=== PATIENT | male | born 1945 | race Caucasian/White ===

== ENCOUNTER 2017-03-25 20:11 | Observation (INO) | payer OTHER ==
--- NOTE | 2017-03-25 20:14 | EDPHY ---
H & P Time Seen by Provider: 03/25/17 20:32 HPI/ROS: CHIEF COMPLAINT: Syncope HISTORY OF PRESENT ILLNESS: This patient is a 71-year-old male who presents to the Emergency Department via EMS after an episode of syncope while at the [employer]. Per his , he appeared to feel unwell while sitting in the stands at the [employer] before losing consciousness. He reportedly remained limp and unresponsive for approximately 8-10 minutes. He was breathing during that time. There were no limb movements. At time of arrival, he reports feeling fatigued and nauseated with diffuse paresthesias. He denies chest pain or headache. He denies weakness. He has not recently been ill. No history of recent trauma. Medical history includes hypertension; he has been taking his medication as prescribed. No history of cardiac disease. He did take two hits of marijuana at the [employer]. He is not a regular marijuana smoker. His states that he had a similar, although less dramatic, episode several years ago. At that time he was hospitalized for days and underwent an extensive workup with no apparent diagnosis. REVIEW OF SYSTEMS: A ten point review of systems was performed and is negative with the exception of the items mentioned in the HPI. Source: Patient, Family - Medical/Surgical History PMH: Hypertension - Social History Additional Social History: - and son at bedside. - Works at [employer]. Also a track coach. - No tobacco use. - No illicit drug use. - Physical Exam Exam: General Appearance: Alert, tachypneic, appears fatigued. Vital signs reviewed. Hypotensive at 97/61. Head: Normocephalic atraumatic. Eyes: Pupils equal and round, no conjunctival injection, no discharge. Anicteric. ENT, Mouth: Mucous membranes are dry, no oropharyngeal erythema or edema. Neck: No lymphadenopathy, supple. Trachea midline. Respiratory: Lungs are clear to auscultation; no wheezes, rales, or rhonchi. Cardiovascular: Regular rate and rhythm; no murmur, rub, or gallop. Gastrointestinal: Abdomen is soft and nontender, no masses or organomegaly, bowel sounds normal. Skin: Warm and dry, no rashes on exposed skin, normal color. Back: Nontender to palpation over the thoracolumbar spine. No CVAT. Extremities: No lower extremity edema, no calf tenderness or swelling. Neurological: Alert and oriented x3. Moving all four extremities easily and equally. Cranial nerves II through XII are examined and are intact (visual acuity not tested). Strength is 5 over 5 bilaterally with testing of all major motor groups. Sensation is intact to light touch over all 4 extremities. Deep tendon reflexes are 2+ in the biceps and knees bilaterally. Normal heel to moise bilaterally. Psychiatric: Normal affect. No agitation. Constitutional: Initial Vital Signs Temperature (C) 36.4 C 03/25/17 20:25 Heart Rate 98 03/25/17 20:25 Respiratory Rate 14 03/25/17 20:25 Blood Pressure 97/61 L 03/25/17 20:25 O2 Sat (%) 97 03/25/17 20:25 O2 Delivery Mode Room Air Allergies/Adverse Reactions: No Known Allergies Allergy (Unverified 03/25/17 20:24) Home Medications: Medication Instructions Recorded Acetaminophen/ASA/Caffeine 2 each PO DAILY PRN 03/25/17 [Excedrin Tablet (*)] Lisinopril [Zestril 10 mg (*)] 10 mg PO DAILY 03/25/17 Temazepam [Restoril 15 MG (*)] 15 mg PO HS 03/25/17 Zolpidem Tartrate [Ambien 10 mg] 10 mg PO HS 03/25/17 Medical Decision Making - Diagnostics EKG Interpretation: The 12 lead EKG was interpreted by myself: Sinus rhythm, rate 90; borderline prolonged QT interval; no ischemic changes. See hard copy and/or "tracemaster" electronic copy for interpretation. Imaging Results: Head CT reviewed by me. Also discussed with radiologist. No acute findings. ED Course/Re-evaluation: This 71-year-old male with no significant medical history other than hypertension presents following an apparent syncopal episode while seated at a concert this evening. He is hypotensive at 97/61 at time of arrival. At time of exam, he is tachypneic and complains of associated paresthesias bilaterally which I believe are secondary to hyperventilation. He has a flat affect and appears fatigued. No focal neurological findings on exam. Speech is somewhat deliberate and slow, but clear and appropriate. Will proceed with labs, EKG, and CT of the head. IV established. 1L IV NS administered. Labs obtained. CO2 decreased at 15. Troponin is negative. 212: CT of the head is normal per Dr. Muñiz, radiology. 2140: On reevaluation, the patient complains of persistent nausea and bilateral extremity paresthesias. He appears uncomfortable and states that he feels sick to his stomach. He remains tachypneic with respiratory rate of 30. He is alert and fully oriented. I discussed lab, EKG, and imaging results with the patient and his family. Patient now tells me that he has a remote history of similar episodes for which he was worked up and never given a definitive diagnosis. reports last significant episode was in the early . She repeats that alexx's episode was different from what she has previously witnessed, in both duration and severity. 4mg IV Zofran administered for persistent nausea. 2149: Consultation with Dr. Quintana, hospitalist, who accepts admission. He has remained relatively hypotensive while in the emergency department. No cardiac arrhythmia is appreciated on the monitor. No laboratory findings that would explain alexx's event. It is not clear to me whether this was a syncopal event, a seizure (metabolic acidosis suggests seizure), or reaction to the marijuana that he smoked. I do feel that admission is appropriate for continued cardiac monitoring, perhaps more imaging, IV hydration, and consultation as needed. Differential Diagnosis: I considered a differential diagnosis of Syncope including but not limited to vasovagal syncope, arrhythmia, dehydration, and blood loss. I also considered a differential diagnosis of Seizure including but not limited to electrolyte abnormality, alcohol withdrawal, medication noncompliance, head injury, and breakthrough seizure. - Data Points Laboratory Results: Laboratory Results 03/25/17 20:25 03/25/17 20:25 Medications Given: Discontinued Medications Sodium Chloride (Ns) 1,000 mls @ 0 mls/hr IV ONCE ONE; Wide Open PRN Reason: Protocol Stop: 03/25/17 20:38 Last Admin: 03/25/17 21:00 Dose: 1,000 mls Sodium Chloride (Ns) 1,000 mls @ 0 mls/hr IV ONCE ONE PRN Reason: Wide Open Stop: 03/25/17 21:56 Last Admin: 03/25/17 22:00 Dose: 1,000 mls Lorazepam (Ativan Injection) 1 mg IVP EDNOW ONE Stop: 03/25/17 22:01 Last Admin: 03/25/17 22:00 Dose: 1 mg Departure - Departure Disposition: [facility] Acute Clinical Impression: Syncope Qualifiers: Syncope type: unspecified Qualified Code(s): R55 - Syncope and collapse Condition: Fair Report Scribed for: Sirena Mcclellan Report Scribed by: Nithya Garcia Date of Report: 03/25/17 Time of Report: 20:29 Physician Review and Approval Statement: 03/25/17 20:14 Portions of this note were transcribed by the mobile paramedical examiner. I, Dr. Sirena Mcclellan, personally performed the history, physical exam, and medical decision- making; and confirmed the accuracy of the information in the transcribed note.
--- NOTE | 2017-03-25 20:22 | CPEKG ---
Heart Rate: 90 RR Interval: 667 P-R Interval: 168 QRSD Interval: 92 QT Interval: 392 QTC Interval: 480 P [place]: 69 QRS [place]: 5 T Wave [place]: 50 EKG Severity - BORDERLINE ECG - EKG Impression: SINUS RHYTHM EKG Impression: BORDERLINE PROLONGED QT INTERVAL Electronically Signed By: Sirena Mcclellan 26-Mar-2017 01:40:19
[2017-03-25] MEDS ORDERED: NS 1,000 ML IV ONE ×2 (20:37→21:55)
[2017-03-25 20:44] LABS: % IMMATURE GRANULYOCYTES 1.4 % (0.0-1.1); ABSOLUTE IMMATURE GRANULOCYTES 0.14 10^3/uL (0.00-0.10); ADD DIFF? NO; ADD MORPH? NO; ADD SCAN? NO; ATYPICAL LYMPHOCYTE FLAG 0 (0-99); FRAGMENT RBC FLAG 0 (0-99); HEMATOCRIT 40.5 % (40.0-51.0); HEMOGLOBIN 14.3 g/dL (13.7-17.5); LEFT SHIFT FLG 10 (0-99); LIPEMIA HEMOLYSIS FLAG 90 (0-99); MEAN CELL HEMOGLOBIN 30.8 pg (27.9-34.1); MEAN CELL HEMOGLOBIN CONCENTR. 35.3 g/dL (32.4-36.7); MEAN CELL VOLUME 87.1 fL (81.5-99.8); PLATELET CLUMPS FLAG 10 (0-99); PLATELET COUNT 274 10^3/uL (150-400); RED BLOOD CELL COUNT 4.65 10^6/uL (4.40-6.38); RED CELL DISTRIBUTION WIDTH 13.2 % (11.5-15.2)
[2017-03-25 20:46] LABS: ANION GAP 15 mEq/L (8-16); CARBON DIOXIDE 15 mEq/l (22-31); CHLORIDE 106 mEq/L (97-110); CREATININE 1.2 mg/dL (0.7-1.3); GLOMERULAR FILTRATION RATE > 60; GLUCOSE 122 mg/dL (70-100); POTASSIUM 3.5 mEq/L (3.5-5.2); SODIUM 136 mEq/L (134-144)
[2017-03-25 20:57] LABS: TROPONIN I < 0.012 ng/mL (0-0.034)
[2017-03-25] MEDS ORDERED: LORazepam 2 MG/ML INJ ONE (21:47)
[2017-03-25] MEDS ORDERED: LORazepam 2 MG/ML INJ IVP ONE (22:00)
[2017-03-25] MEDS ORDERED: ONDANSETRON 4 MG/2 ML VIAL IVP PRN (23:37)
[2017-03-25] MEDS ORDERED: ACETAMINOPHEN 325 MG TAB PO PRN (23:37)
[2017-03-25] MEDS ORDERED: ONDANSETRON DISINTEGRATING 4 MG TAB PO PRN (23:37)
[2017-03-26] MEDS: NS 1,000 ML IV SCH ×2 (00:50→08:42)
--- NOTE | 2017-03-26 03:57 | PDGENHP ---
History and Physical - Chief Complaint syncope - History of Present Illness Patient is a 71 year old male with hypertension, osteoarthritis who presents to the ED after a syncopal event. patient was at the [employer] concert this evening with his , had been standing in the sunlight for about 1 hour when he informed his that he felt unwell. When she looked at him, she reported he appeared clammy and diaphoretic. She then helped him down into the seated position and he subsequently lost consciousness. She does not report any obvious jerking movements urinary incontinence or tongue biting, but she feels LOC lasted several minutes. Eventually he was brought to the medical tent present at the concert, where patient's BP was noted to be low. Patient does recall being evaluated by EMS and transported to the ED, but does not remember the events leading up to his syncopal event. He reported continued generalized fatigue and weakness, faint paresthesias in his distal extremities and nausea, but denies any obvious chest pain, palpitations, shortness of breath. Of note, prior to the concert, patient had spent the day outside with his grandchildren, did not adequately hydrate himself throughout the day. Then, prior to the concert, he smoked marijuana, which he is not a regular user of generally. He denies any recent fever, chills, headache, cough, vomiting, diarrhea, dysuria. He does report a prior history of a syncopal event in about 2004, for which he was admitted to [facility]. At that time there was concern for possible seizure activity, although, ultimately cause of the syncope was not determined. At baseline he has good cardiac function, exercises regularly. On arrival to the ED, patient was afebrile, but initially hypotensive. Labs revealed mild leukocytosis, anion gap, negative troponin. CT head was unremarkable for any acute pathology. EKG revealed normal sinus rhythm. He was given IV fluid hydration with improvement in his blood pressure and symptoms. History Information - Allergies/Home Medication List Allergies/Adverse Reactions: No Known Allergies Allergy (Unverified 03/25/17 20:24) Home Medications: Acetaminophen/ASA/Caffeine [Excedrin Tablet (*)] 2 each PO DAILY PRN 03/25/17 [ Last Taken 03/25/17 2 tabs] Lisinopril [Zestril 10 mg (*)] 10 mg PO DAILY 03/25/17 [Last Taken 03/25/17] Temazepam [Restoril 15 MG (*)] 15 mg PO HS 03/25/17 [Last Taken 03/24/17] Zolpidem Tartrate [Ambien 10 mg] 10 mg PO HS 03/25/17 [Last Taken 03/24/17] I have personally reviewed and updated: family history, medical history, social history, surgical history - Past Medical History Additional medical history: hypertension. h/o prostate cancer s/p radiation therapy. osteoarthritis - Surgical History Additional surgical history: L finger amputation. appendectomy - Family History Additional family history: CAD. CVA in Grandfather - Social History Smoking Status: Never smoked Alcohol Use: None Drug Use: None, Marijuana (tonight ) Additional social history: Patient lives with his , is active at baseline. Review of Systems ROS: 10pt was reviewed & negative except for what was stated in HPI & below Physical Exam Temp Pulse Resp BP Pulse Ox 36.4 C 67 18 140/89 H 98 03/26/17 00:39 03/26/17 00:39 03/26/17 00:39 03/26/17 00:39 03/26/17 00:39 O2 (L/minute) 2 Constitutional: no apparent distress, appears nourished, not in pain Eyes: PERRL, anicteric sclera, EOMI Ears, Nose, Mouth, Throat: moist mucous membranes, hearing normal, ears appear normal, no oral mucosal ulcers Cardiovascular: regular rate and rhythym, no murmur, rub, or gallop, pulses symmetric bilaterally, No JVD, No edema Peripheral Pulses: 2+: dorsalis-pedis (R), dorsalis-pedis (L) Respiratory: no respiratory distress, no rales or rhonchi, clear to auscultation Gastrointestinal: normoactive bowel sounds, soft, non-tender abdomen, no palpable masses, No guarding, No rebound, No distension Genitourinary: no bladder fullness, no bladder tenderness Skin: warm, normal color, no rashes or abrasions, no fluctuance, no induration, No mottled Musculoskeletal: full muscle strength, no muscle tenderness, normal joint ROM, no joint effusions Neurologic: AAOx3, sensation intact bilaterally, CN II-XII Intact, No weakness, No numbness, No pronator drift, No facial droop Psychiatric: interacting appropriately, not anxious, not encephalopathic, thought process linear Lab Data & Imaging Review 03/25/17 20:25 03/25/17 20:25 WBC 10.15 10^3/uL (3.80-9.50) H 03/25/17 20:25 RBC 4.65 10^6/uL (4.40-6.38) 03/25/17 20:25 Hgb 14.3 g/dL (13.7-17.5) 03/25/17 20:25 Hct 40.5 % (40.0-51.0) 03/25/17 20:25 MCV 87.1 fL (81.5-99.8) 03/25/17 20: MCH 30.8 pg (27.9-34.1) 03/25/17 20: MCHC 35.3 g/dL (32.4-36.7) 03/25/17 20:25 RDW 13.2 % (11.5-15.2) 03/25/17 20:25 Plt Count 274 10^3/uL (150-400) 03/25/17 20:25 MPV 10.0 fL (8.7-11.7) 03/25/17 20:25 Neut % (Auto) 57.0 % (39.3-74.2) 03/25/17 20:25 Lymph % (Auto) 29.0 % (15.0-45.0) 03/25/17 20:25 Snyder % (Auto) 10.2 % (4.5-13.0) 03/25/17 20:25 Eos % (Auto) 1.5 % (0.6-7.6) 03/25/17 20:25 Baso % (Auto) 0.9 % (0.3-1.7) 03/25/17:25 Nucleat RBC Rel Count 0.0 % (0.0-0.2) 03/25/17: Absolute Neuts (auto) 5.79 10^3/uL (1.70-6.50) 03/25/17 20:25 Absolute Lymphs (auto) 2.94 10^3/uL (1.00-3.00) 03/25/17 20:25 Absolute Monos (auto) 1.04 10^3/uL (0.30-0.80) H 03/25/17 20:25 Absolute Eos (auto) 0.15 10^3/uL (0.03-0.40) 03/25/17 20:25 Absolute Basos (auto) 0.09 10^3/uL (0.02-0.10) 03/25/17 20:25 Absolute Nucleated RBC 0.00 10^3/uL (0-0.01) 03/25/17 20:25 Immature Gran % 1.4 % (0.0-1.1) H 03/25/17 20:25 Immature Gran # 0.14 10^3/uL (0.00-0.10) H 03/25/17 20:25 Sodium 136 mEq/L (134-144) 03/25/17 20:25 Potassium 3.5 mEq/L (3.5-5.2) 03/25/17 20:25 Chloride 106 mEq/L (97-110) 03/25/17 20:25 Carbon Dioxide 15 mEq/l (22-31) L 03/25/17 20:25 Anion Gap 15 mEq/L (8-16) 03/25/17 20:25 BUN 18 mg/dL (7-23) 03/25/17 20:25 Creatinine 1.2 mg/dL (0.7-1.3) 03/25/17 20:25 Estimated GFR > 60 03/25/17 20:25 Glucose 122 mg/dL (70-100) H 03/25/17 20:25 Calcium 10.0 mg/dL (8.5-10.4) 03/25/17 20:25 Creatine Kinase 108 IU/L (0-224) 03/25/17 20:35 Troponin I < 0.012 ng/mL (0-0.034) 03/25/17 20:25 Visualized and Interpreted imaging results: Yes Interpretation: CT head: no acute abnormalities Visualized and Interpreted EKG results: Yes EKG Interpretation: Positive for: normal sinsus rhythm (no st/t wave changes) Assessment & Plan Assessment: Patient is a 71-year-old male with hypertension who presents to the ED after syncopal episode experienced at the [employer]. Initial ED evaluation reveals hypotension that has resolved with IV fluid hydration, nonischemic EKG, normal CT head. Plan: # syncope Suspect episode is likely related to hypovolemia/dehydration in setting of poor hydration during prolonged outdoor exposure, as well as new marijuana ingestion. However, must also consider neurogenic (TIA, seizure) vs cardiogenic (ACS, arrhythmia) etiology. CT head does not reveal any acute abnormalities and patient has no focal deficits on presenting exam. Initial ekg and troponin are also unremarkable. - trend troponins, monitor serial EKGs - check TTE - check carotid dopplers - obtain neurology consult for possible seizure history/prolonged nature of syncope - continue IV fluid hydration overnight # chronic hypertension BP low on presentation, has improved with IV hydration. Will monitor VS and resume home meds if appropriate. # dispo: admit to observation status for syncope evaluation #gen: cardiac diet DVT ppx: low risk Full code
[2017-03-26 05:48] LABS: % IMMATURE GRANULYOCYTES 0.8 % (0.0-1.1); ABSOLUTE IMMATURE GRANULOCYTES 0.08 10^3/uL (0.00-0.10); ADD DIFF? NO; ADD MORPH? NO; ADD SCAN? NO; ATYPICAL LYMPHOCYTE FLAG 0 (0-99); FRAGMENT RBC FLAG 0 (0-99); HEMATOCRIT 37.1 % (40.0-51.0); HEMOGLOBIN 12.8 g/dL (13.7-17.5); LEFT SHIFT FLG 10 (0-99); LIPEMIA HEMOLYSIS FLAG 90 (0-99); MEAN CELL HEMOGLOBIN 30.5 pg (27.9-34.1); MEAN CELL HEMOGLOBIN CONCENTR. 34.5 g/dL (32.4-36.7); MEAN CELL VOLUME 88.5 fL (81.5-99.8); MEAN PLATELET VOLUME 10.1 fL (8.7-11.7); PLATELET CLUMPS FLAG 10 (0-99); PLATELET COUNT 217 10^3/uL (150-400); RED BLOOD CELL COUNT 4.19 10^6/uL (4.40-6.38); RED CELL DISTRIBUTION WIDTH 13.3 % (11.5-15.2)
[2017-03-26 06:07] LABS: APTT 27.3 SEC (23.0-38.0); INR 1.15 (0.83-1.16); PROTIME(PATIENT) 14.6 SEC (12.0-15.0)
[2017-03-26 06:22] LABS: ANION GAP 8 mEq/L (8-16); CALCIUM 8.5 mg/dL (8.5-10.4); CARBON DIOXIDE 19 mEq/l (22-31); CHLORIDE 112 mEq/L (97-110); CREATININE 0.8 mg/dL (0.7-1.3); GLOMERULAR FILTRATION RATE > 60; GLUCOSE 96 mg/dL (70-100); POTASSIUM 4.1 mEq/L (3.5-5.2); SODIUM 139 mEq/L (134-144)
[2017-03-26 06:30] LABS: CREATINE KINASE-MB FRACTION 1.58 ng/mL (0-3.19); TROPONIN I 0.014 ng/mL (0-0.034)
[2017-03-26] MEDS ORDERED: LISINOPRIL 10 MG TAB PO SCH (09:00)
[2017-03-26] MEDS ORDERED: IOPAMIDOL (ISOVUE 370) 100 ML BTL IV ONE (09:47)
--- NOTE | 2017-03-26 10:27 | GCON ---
[f rep st] CONSULTATION NEUROLOGIC CONSULTATION. REFERRING PHYSICIAN: Ashlyn Hurst MD The patient is a 71-year-old gentleman who I am asked to see in neurologic consultation regarding ep isode of altered responsiveness and possible seizure. History is obtained from the patient as well as review of the medical records and discussions with his who has witnessed last night's event as well as others in the past. For probably 40 years he has had episodes of intermittent speech arr est that usually last 10 or 15 seconds and then resolve. He usually knows it is coming and it is no t associated with any convulsive activity. However, he says he would not typically be able to speak to somebody during the event when it occurs. It rarely has occurred when driving and he always fee ls as if he can control his car and get off the road. Yesterday he was going to the [facility] oncern and standing for the first song and then said she could tell something did not look righ t after he sat down, and started to become poorly responsive with eyes open but quickly started to d evelop rigidity in the body and twisting of his body. She said he was flexed toward her with his he ad and over the next several minutes she said it appeared that he was not breathing and some local edical people checked him and could not order picker/assembler a pulse. She says she thought he was dying. He the n started to have some repetitive muscle twitching and they eventually were able to get him out of t he crowd but he was still unresponsive in any significant way. He says he really remembers only vag uely any of what was happening. It took several hours for him to really start returning back to him self again. She said at some point rescue squad documented systolic blood pressure of around 60. I n reviewing the medical records here when he came to the hospital, his blood pressure was 97/61, and since then has been either around 117 or most recently 140 systolic. He had a few hits of marijuana yesterday and does not smoke regularly. He was not drinking any alco hol. No other drug exposures. He did not have any known cause for these events in the past and has had some more prominent events, although none is prominent as this, that have led to hospitalization here in 2004 and apparently 5 days of hospitalization without any clear-cut explanation. Many years ago (30 years) he believes he was tried on Dilantin but really did not tolerate that. It is clear that there was some concern ab out seizures in the past but he does not really pursue that any more. He currently is feeling better and is still somewhat slower in his interactions, although his s ays he is always a very slow and deliberate speaker. Clearly, what happened yesterday was nothing w elzah she had ever seen before and the most dramatic episode she had ever witnessed before. She cert ainly said it looked like seizure activity to her and not simply fainting. He has not had any recent illness but he has been under high stress with an alcoholic son who has be en missing for 10 days. He was feeling somewhat short of breath and also describing paresthesias in the extremities and some nausea. There is a history of hypertension, prostate cancer with radiatio n therapy for that, osteoarthritis. Family history of coronary disease and stroke but no family his tory of seizure. When he came to the hospital he was on Excedrin as needed, lisinopril, Restoril as needed at night and zolpidem as needed. He has never been a smoker. Marijuana use has been rare a lthough he did have a few hits yesterday. No alcohol. 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 The current vital signs are blood pressure 140/89, pulse of 67, respiration 18, temperature 36.4. I n general he is well developed, in no acute distress. Eyes are clear. Neck is supple with no bruit s on the right but I hear bruit on the left. Cardiac exam is regular rate and rhythm. No murmur. He is alert and fairly attentive although has decreased eye contact and has a flat affect and speaks slowly and quietly. He is oriented and able to communicate effectively and follow instructions. P upils 3 mm and reactive. Extraocular movements are intact. Normal facial sensation and strength. Hearing is preserved. Motor exam, normal muscle bulk and tone with 5/5 strength. Sensation is pres erved for temperature and light touch. Reflexes are 1+ and symmetric. I have reviewed the head CT which was normal. His carotid ultrasound shows severe plaquing bilatera lly with velocity estimated stenoses of less than 50% with the recommendation for further imaging fo r details about the degree of stenosis. Laboratory studies show white count of 9000, hematocrit of 37%, normal INR. Serum chemistry when he came in showed a bicarbonate level of 15, glucose of 122, bicarbonate is now 19, otherwise normal e lectrolytes. TSH and CK are normal. Normal troponin. 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 He then went through a prolonged period of postictal state or maybe even complex partial seizure activ ity. Although he has carotid stenosis, these probably do not account for this event specifically. This is far more prolonged and atypical to simply represent a syncopal event with syncopal seizure, I think. His laboratory studies, although nonspecific, showed metabolic acidosis as we would common ly see with seizure like this. His head CT is negative, but insensitive for mesial temporal lobe pa thology which would be the principal site we would investigate further. He needs MR angiogram to he lp look at the carotid stenoses at the same time we arrange for brain MRI with and without contrast to look for any seizure focus, particularly left hemisphere focus or mesial temporal lobe. He was i nformed that he is not to drive and is restricted from driving for 3 months until these episodes cea se. I believe he should be treated with anticonvulsant therapy, but he is refusing in the short ter m saying that he wants to think about it and is leery of medications in general and did not like the experience he had with Dilantin. I explained to him that I believe he really should take medicatio n, but it is certainly his call as to whether he wants to do that. His really wants him to luann e the medication as well, but we fully understand that it is his choice as to whether to take medica tion or not. If everything stabilizes today and we do not find anything unusual with our additional work up, the rest of the evaluations can be done as an outpatient and I am happy to follow him. Total unit time was 55 minutes with greater than 50% of the time counseling and coordination of care . /[id number]/MODL
[2017-03-26 11:06] LABS: COLOR YELLOW; LEUKOCYTE ESTERASE,URINE NEGATIVE (NEGATIVE); NITRITE,URINE NEGATIVE (NEGATIVE)
[2017-03-26] MEDS ORDERED: GADOBUTROL 10 ML VIAL IVP ONE (11:40)
[2017-03-26 13:46] VITALS: BP 145/89; PULSE 75; RESP 16; TEMP 98; O2SAT 95
--- NOTE | 2017-03-26 15:19 | PDDCSUM ---
Discharge Summary Discharge Summary: Dates of service 03/25-03/26/17 Discharge diagnosis # seizure # right ICA stenosis # htn Consultations: neurology Procedures performed: echo, brain mri, neck MRA, carotid US Hospital course by problem # seizure: patient presented after a LOC event at a concert initially concerning for syncope but on further discussion with patient and his , more c/w seizure--LOC for 10-15 minutes at which time he was noted by EMS and bystanders to have labored breathing and apnea as well as weak pulses--this was followed by many hours of post ictal state. 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 He was placed on dilantin once but had an allergic response, described as anaphylactic, and discontinued it. He has never seen a neurologist since other than in the hospital. After long discussion he agrees to start keppra and f/u with neurology. Seizure precautions including not driving stressed to him and his family, he is in agreement with this plan. MRI brain negative. # right ICA stenosis: by MRA appears to be 50-70% stenosed, discussed that this will need close f/u and consideration for CEA. Recommend he obtain surgical consultation with Dr. Lio Reaves as an OP and he agrees to this plan. Meds: keppra 500 bid, diazepam rectal prn prolonged seizure--new F/u with PCP, Dr. Steen of neurology and Dr. Reaves > 60 minutes spent in discharge of patient, more than half in face to face counseling of patient and his family regarding reasons for being on anti seizure medications and importance of follow up
--- NOTE | 2017-03-26 19:52 | ECHO ---
[id number] + + [id number] : : [place] [id number] : : [phone] + + Adult Echocardiographic Report + ------+ :Name: KATHY DIAZ RStudy Date: 03/26/2017 11:23 AM : : Hospital Admission Number: [id number] Locatio n: 212: :: 1945 Gender: Male Height: 67 in : :Age: 71 yrs Race: WH Weight: 150 lb : :Reason For Study: syncope : : BSA: 1.8 meters 2 : + ------+ MMode/2D Measurements \T\ Calculations IVSd: 0.46 cm LVIDd: 4.5 cm FS: 52.6 % Ao root diam: LVPWd: 0.87 cm LVIDs: 2.2 cm EDV(Teich): 3.1 cm 94.4 ml LA dimension: ESV(Teich): 3.2 cm 15.4 ml EF(Teich): 83.7 % LVLd ap4: 7.5 cm SV(MOD-sp4): EDV(MOD-sp4): 37.0 ml 55.0 ml LVLs ap4: 5.7 cm ESV(MOD-sp4): 18.0 ml EF(MOD-sp4): 67.3 % Normal Measurement Values: + + :LVIDd (3.5-5.7cm) IVSd (0.6-1.1cm) LVPWd (0.6-1.1cm) Aortic Root (2.0-3.7cm)Left Atrium (1.5-4.0cm): :LV Vol(d) (76-115ml) LV Vol(s) (29-48ml) Ejec Fraction (50-65%)PV Stoney (0.6- 1.2m/s) TV Stoney (0.4-1.0m/s) : :MV E Stoney (0.8-1.0m/s)MV A Stoney (0.3-1.0m/s)LVOT Stoney (0.7-1.2m/s) Asc Ao Stoney ( 0.9-1.8m/s) : + + Doppler Measurements \T\ Calculations MV E max stoney: 96.7 cm/sec Ao V2 max: 116.7 cm/sec TR max stoney: 274.2 cm/sec MV A max stoney: 71.6 cm/sec Ao max P.5 mmHg TR max P.1 mmHg MV E/A: 1.4 RAP systole: 5.0 mmHg RVSP(TR): 35.1 mmHg Left Ventricle The left ventricle is normal in size and function. There is normal left ventricular wall thickness. Left ventricular systolic function is normal. Ejection Fraction = 60-65%. No regional wall motion abnormalities noted. Right Ventricle The right ventricle is normal in size and function. Atria The left atrial size is normal. Right atrial size is normal. The interatrial septum is intact with no evidence for an atrial septal defect. Mitral Valve There is mild mitral annular calcification. There is no evidence of mitral valve prolapse. There is no mitral valve stenosis. There is mild mitral regurgitation. Tricuspid Valve Normal tricuspid valve. There is mild tricuspid regurgitation. Right ventricular systolic pressure is normal. Aortic Valve The aortic valve is trileaflet. The aortic valve opens well. There is no aortic stenosis. There is no aortic insufficiency. Pulmonic Valve The pulmonic valve is normal in structure and function. There is no pulmonic valvular regurgitation. Great Vessels The aortic root is normal size. Pericardium/Pleural There is no pericardial effusion. Conclusion A complete two-dimensional transthoracic echocardiogram was performed (2D, M-mode, Doppler and color flow Doppler). The left ventricle is normal in size and function. Left ventricular systolic function is normal. Ejection Fraction = 60-65%. There is mild mitral regurgitation. There is mild tricuspid regurgitation. Right ventricular systolic pressure is normal. Final Reading Physician: Yosi Gee MD electronically signed on 03/26/2017 07:51 PM Performed By: Linda Ley RDCS
== END 2017-03-26 16:01 | disposition home or self-care (01) ==
LOC: EDUNIT# → F2W 23:35
PROVIDERS: ADMIT Internal Medicine; ATTEND Internal Medicine
DX: R56.9 Unspecified convulsions (principal); I65.23 Occlusion and stenosis of bilateral carotid arteries; E86.0 Dehydration; I95.9 Hypotension, unspecified; I10 Essential (primary) hypertension; M19.90 Unspecified osteoarthritis, unspecified site
CPT/HCPCS: 70450; 70548; 70553; 93005; 93306; 93880; G0378; 96374; A9585; J2060; Q9967

== ENCOUNTER → 2017-05-10 | Outpatient (CLI) | payer OTHER ==
--- NOTE | 2017-05-12 09:34 | CPEEG ---
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 INDICATION: Evaluate for seizure and epileptiform activity. DESCRIPTION OF THE RECORD: This is a technically adequate study obtained following partial sleep de privation. Background consists of a 10 hertz posterior predominant symmetric alpha rhythm which att enuates on eye opening. Frontal central beta activity is present. There are no areas of focal slow ing and no epileptiform discharges. Photic stimulation is performed and produces symmetric driving responses at some frequencies. Hyperventilation produces mild, symmetric buildup. INTERPRETATION: This is a normal awake EEG recording. /[id number]/MODL
== END ==
LOC: FCPNEURO 08:51
PROVIDERS: ATTEND Psychiatry & Neurology Neurology
DX: G40.009 Localization-related (focal) (partial) idiopathic epilepsy and epileptic syndromes with seizures of localized onset, not intractable, without status epilepticus (principal)